=== PATIENT | female | born 1985 ===

== ENCOUNTER 2021-01-19 15:24 | Inpatient (IN) | payer OTHER ==
[~2021-01-19] VITALS: Ht 160 cm; Wt 95.5 kg
[2021-02-10] VITALS (10 sets, daily range): BP systolic 116–142; BP diastolic 59–86; PULSE 64–98; TEMP 97.4–98.1
[2021-02-10] MEDS ORDERED: CATAPRES 0.1MG0.1 MG PO (07:49)
[2021-02-10] MEDS ORDERED: LAMICTAL 100MG100 MG PO (07:49)
[2021-02-10] MEDS ORDERED: WELLBUTRIN XL150 MG PO (07:50)
[2021-02-10] MEDS ORDERED: VITAMIN D31000 IU PO (07:51)
[2021-02-10] MEDS ORDERED: NORVASC 10MG10 MG PO (07:51)
--- NOTE | 2021-02-10 08:30 | NUR ---
The patient ambulated back to [facility] independently using a steady gait and appeared to tolerate the activity well. The patient appears alert and oriented at this time. Vital signs obtained. Consent signed. 20G IV started in right hand with one stick, LR infusing without difficulty. Assessment completed. brought back to be at her bedside. Call light is within reach. Will conitnue to monitor the patient.
--- NOTE | 2021-02-10 18:30 | NUR ---
Patient got back from surgery at 1230. She has been having nausea and pain since arriving back to the floor. She has had toradol, zofran and dilauded for pain and nausea. She has been resting between medications. She got up and voided once. She did not think she could tolerated standing to do the barrium swallow study, so she is going to do it in the morning. She has not been able to drink more than a few sips of her gatorade. Constantino drain to bulb suction, emptied 30ml this afternoon. Drainage is light pink. No other changes at this time. Call light within reach.
[2021-02-11 05:16] VITALS: BP 130/70; PULSE 88; TEMP 98.6
--- NOTE | 2021-02-11 05:41 | NUR ---
PATIENT REPORTED PAIN THROUGHOUT THE NIGHT. PRN TORODOL ADMINISTERED AND PATIENT WAS ABLE TO REST SEVERAL HOURS IN A ROW. PRN DILAUDID ADMINISTERED X'S 2. PATIENT ALSO HAD NAUSEA AND VOMITING BUT RESOLVED WITH ZOFRAN. NO REPORTS OF NAUSEA FOR SEVERAL HOURS. NO NEW ISSUES NOTED OR REPORTED.
[2021-02-11 07:15] VITALS: BP 123/62; PULSE 89; TEMP 98.5
[2021-02-11] MEDS ORDERED: ZOFRAN 4MG T4 MG/TAB PO (07:44)
[2021-02-11] MEDS ORDERED: NORCO 325 MG-51 TAB PO (07:52)
--- NOTE | 2021-02-11 09:00 | NUR ---
Patient is doing well this morning. Rating pain at 3 on a 0-10 scale. Denies nausea. She has been walking in the room, she did not walk in the hallways because she didn't want to leave the room. She is passing flatus. She is tolerating clear liquids without issues. Discussed discharge plan. No other changes at this time. Call bren ruff.
--- NOTE | 2021-02-11 12:03 | NUR ---
First visit from the retail asset protection specialist. No needs right now.
--- NOTE | 2021-02-11 13:40 | NUR ---
Patient is discharging home. Discharge instructions discussed with patient. No questions verbalized. Explained she has scripts to lease picker for norco and zofran. Explained when follow up appointment is. Her packed up her belongings. INT discontinued. Copies of discharge instructions sent with patient. Patient walked out with this nurse.
== END 2021-02-11 13:45 | disposition home or self-care (01) | DRG 621 ==
LOC: SURG 02-10 07:24 → INPTSU 02-10 07:24 → SURG 02-10 09:30
PROVIDERS: ADMIT Surgery
PROC: 0DB64Z3 Excision of Stomach, Percutaneous Endoscopic Approach, Vertical (ICD-10-PCS; principal; 2021-02-10 09:30)
DX: E66.01 Morbid (severe) obesity due to excess calories (principal); Z68.39 Body mass index [BMI] 39.0-39.9, adult; F41.9 Anxiety disorder, unspecified; F32.9 Major depressive disorder, single episode, unspecified; I10 Essential (primary) hypertension; Z20.822 Contact with and (suspected) exposure to COVID-19
CPT/HCPCS: J0330; J0690; J1100; J1170; J1885; J2250; J2405; J2550; J2704; J3010; J7120